=== PATIENT | female | born 1985 | race Two or more races ===

== ENCOUNTER → 2019-12-29 | Outpatient (CLI) | payer SELFPAY ==
[~2019-12-29] MED LIST: AMLO2.5T5 PO; CONTRAST GIVEN. MC PRN; IOHEXOL 180 MG/ML 10 ML VIAL. INT UTERIN ONE
--- NOTE | 2019-12-29 17:35 | KCIC ---
Hysterosalpingogram 12/29/2019 CLINICAL HISTORY: Infertility. TECHNIQUE: After the risks and benefits of the procedure were explained to the patient, written informed consent was obtained. The patient was placed supine on the fluoroscopy table and a speculum was placed into the vagina. The external cervical os was identified and prepped with a Betadine solution. An HSG catheter was advanced into the endometrial canal of the uterus and the balloon was inflated. Following this 20 cc of Omnipaque 180 were injected through the catheter under fluoroscopic control. After the study was completed, the balloon was deflated and the catheter was removed as was the speculum. The patient tolerated the procedure well and there were no immediate complications. The total fluoroscopic time for this study was 2 minutes 7 seconds. Six digital spot radiographs were obtained. 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 No radiopaque foreign body is seen. Small calcifications are seen within the pelvis consistent with phleboliths. The visualized abdominal bowel gas pattern is nonobstructive. The osseous structures are grossly intact. The uterus is retroflexed. The endometrial canal is well opacified with contrast. It is normal in configuration. No filling defect is seen. The right fallopian tube is opacified with contrast throughout its course. Free spillage of contrast into the peritoneal cavity is seen. The left fallopian tube is not visualized. IMPRESSION: 1. The left fallopian tube is not visualized and appears to be occluded at its origin. 2. The right fallopian tube is patent. Electronically signed by: Trell Hanson MD (12/29/2019 5:32 PM) [id number]
== END ==
LOC: KCIC 09:25
PROVIDERS: ATTEND Obstetrics & Gynecology
DX: N97.0 Female infertility associated with anovulation (principal)
CPT/HCPCS: 74740; Q9965